=== PATIENT | female | born 1960 | race Caucasian/White ===

== ENCOUNTER 2021-09-02 09:02 | Emergency (ER) | payer OTHER ==
[~2021-09-02] VITALS: Ht 157.5 cm; Wt 63.0 kg
[2021-09-02 10:37] LABS: BASOPHILS % 1.9 % (0.0-2.0); EOSINOPHILS % 3.3 % (0.0-5.0); HEMATOCRIT. 23.2 % (36.0-48.0); HEMOGLOBIN. 7.8 g/dL (12.0-16.0); LYMPHOCYTES % 21.3 % (20.0-50.0); MEAN CORPUSCULAR HEMOGLOBIN 28.3 pg (28.0-32.0); MEAN CORPUSCULAR VOLUME 84.4 fL (81.0-99.0); MEAN PLATELET VOLUME 8.7 fl (7.4-10.4); MONOCYTES % 7.8 % (2.0-8.0); NEUTROPHILS % 65.7 % (40.0-76.0); PLATELET 252 x1000/uL (130-400); RED BLOOD CELL COUNT 2.75 mill/uL (4.2-5.4); RED CELL DISTRIBUTION WIDTH 13.4 % (11.6-14.6)
[2021-09-02 10:45] LABS: CHLORIDE 96 mEq/L (98-107)
[2021-09-02] MEDS ORDERED: HYDRALAZINE 20MG/ML VIAL IV ONE (13:30)
[2021-09-02] MEDS ORDERED: HYDRALAZINE 20MG/ML VIAL IV NR (14:45)
[2021-09-02 16:26] VITALS: BP 135/56
[2021-09-02] MEDS ORDERED: EPOETIN ALFA 4000UNITS/ML VIAL SUBCUT NR (21:00)
== END 2021-09-02 18:25 | disposition left against medical advice (07) ==
LOC: ER 09:02 → CANBEDREQ 20:18
DX: D64.9 Anemia, unspecified (principal); I12.0 Hypertensive chronic kidney disease with stage 5 chronic kidney disease or end stage renal disease; E11.22 Type 2 diabetes mellitus with diabetic chronic kidney disease; N18.6 End stage renal disease; Z98.890 Other specified postprocedural states
CPT/HCPCS: 36415; 71045; 80053; 83880; 84484; 85025; 93005; 96374; 99285; J0360; J0885

== ENCOUNTER 2022-04-14 09:23 | Emergency (ER) | payer OTHER ==
[~2022-04-14] VITALS: Ht 165.1 cm; Wt 81.0 kg
[2022-04-14 09:49] VITALS: BP 130/54
== END 2022-04-14 20:00 | disposition left against medical advice (07) ==
LOC: ER 09:23
DX: Z13.9 Encounter for screening, unspecified (principal)
CPT/HCPCS: 99281